=== PATIENT | male | born 1995 | race African-American/Black ===

== ENCOUNTER 2020-01-03 08:25 | Emergency (ER) | payer OTHER ==
[~2020-01-03] VITALS: Ht 193 cm; Wt 101.8 kg
[2020-01-03 08:36] VITALS: BP 145/77; TEMP 98.8
[2020-01-03 09:45] VITALS: PULSE 61
== END 2020-01-03 09:44 | disposition home or self-care (01) ==
LOC: COL.ER 08:25
DX: S50.01XA Contusion of right elbow, initial encounter (principal); S49.91XA Unspecified injury of right shoulder and upper arm, initial encounter; F17.200 Nicotine dependence, unspecified, uncomplicated; V49.50XA Passenger injured in collision with unspecified motor vehicles in traffic accident, initial encounter; Y92.410 Unspecified street and highway as the place of occurrence of the external cause

== ENCOUNTER 2020-10-13 13:23 | Emergency (ER) | payer SELFPAY ==
[~2020-10-13] VITALS: Ht 193 cm; Wt 97.7 kg
[2020-10-13 13:51] VITALS: TEMP 97.8
[2020-10-13 14:13] LABS: COLLECTION METHOD CLEAN CATCH
[2020-10-13 14:28] LABS: BUDDING YEAST Present /hpf; MUCOUS Present /lpf; PH 8 (5-8); SQUAMOUS EPITHELIAL None Seen /hpf; URINE APPEARANCE Turbid; URINE BACTERIA None Seen /hpf; URINE BILIRUBIN Negative (NEGATIVE); URINE BLOOD Negative (NEGATIVE); URINE COLOR Yellow; URINE GLUCOSE Negative (NEGATIVE); URINE KETONE Negative (NEGATIVE); URINE LEUKOCYTE ESTERASE 3+ (NEGATIVE); URINE NITRATE Negative (NEGATIVE); URINE PROTEIN(semi-quant) 1+ (NEGATIVE); URINE RBC >50 /hpf; URINE UROBILINOGEN >=4.0 mg/dL (NEGATIVE)
[2020-10-13 15:15] VITALS: BP 122/70; PULSE 71
== END 2020-10-13 15:15 | disposition home or self-care (01) ==
LOC: COL.ER 13:23
PROVIDERS: Family Medicine
DX: N34.2 Other urethritis (principal)
CPT/HCPCS: J0696

== ENCOUNTER 2020-12-25 15:23 | Emergency (ER) | payer SELFPAY ==
[~2020-12-25] VITALS: Ht 185.4 cm; Wt 97.7 kg
[2020-12-25 15:46] VITALS: BP 114/71; PULSE 84; TEMP 98.5
== END 2020-12-25 17:42 | disposition home or self-care (01) ==
LOC: COL.ER 15:23
DX: S01.511A Laceration without foreign body of lip, initial encounter (principal); F17.210 Nicotine dependence, cigarettes, uncomplicated; Y93.89 Activity, other specified; Z23 Encounter for immunization; W45.8XXA Other foreign body or object entering through skin, initial encounter

== ENCOUNTER → 2021-01-02 | Outpatient (CLI) | payer SELFPAY ==
[2021-01-02 11:50] VITALS: BP 129/83; PULSE 57; TEMP 98.3
== END ==
LOC: COL.ER 11:28
DX: Z48.02 Encounter for removal of sutures (principal)

== ENCOUNTER 2021-02-07 23:56 | Emergency (ER) | payer SELFPAY ==
[~2021-02-07] VITALS: Ht 193 cm; Wt 97.7 kg
[2021-02-08 01:06] VITALS: BP 129/83; PULSE 60; TEMP 97.8
== END 2021-02-08 01:06 | disposition home or self-care (01) ==
LOC: COL.ER 23:56
DX: Z20.2 Contact with and (suspected) exposure to infections with a predominantly sexual mode of transmission (principal); F17.210 Nicotine dependence, cigarettes, uncomplicated
CPT/HCPCS: J0696